=== PATIENT | male | born 1995 | race Two or more races ===

== ENCOUNTER 2018-07-06 05:21 | Emergency (ER) | payer OTHER ==
[~2018-07-06] VITALS: Ht 170.2 cm; Wt 47.2 kg
[2018-07-06 05:34] VITALS: Ht 170.2 cm; Wt 47.2 kg
[2018-07-06 08:29] VITALS: BP 122/76
== END 2018-07-06 08:29 | disposition home or self-care (01) ==
LOC: ED 05:21
DX: G43.909 Migraine, unspecified, not intractable, without status migrainosus (principal); H61.22 Impacted cerumen, left ear

== ENCOUNTER 2018-08-26 20:26 | Emergency (ER) | payer OTHER ==
[~2018-08-26] VITALS: Ht 170.2 cm; Wt 46.7 kg
[2018-08-26 20:36] VITALS: BP 113/43; Ht 170.2 cm; Wt 46.7 kg
== END 2018-08-26 21:11 | disposition home or self-care (01) ==
LOC: ED 20:26
DX: J30.9 Allergic rhinitis, unspecified (principal); J06.9 Acute upper respiratory infection, unspecified; F17.210 Nicotine dependence, cigarettes, uncomplicated; Z71.6 Tobacco abuse counseling
CPT/HCPCS: 99406; J1100